=== PATIENT | male | born 1995 | race Caucasian/White ===

== ENCOUNTER 2025-03-26 09:18 | Emergency (ER) | payer OTHER ==
[~2025-03-26] VITALS: Ht 172.7 cm; Wt 71.9 kg
[2025-03-26] MEDS ORDERED: IBU600 MG PO (09:46)
[2025-03-26] MEDS ORDERED: AMOX TR-K CLV1 EAC1 PO (09:46)
[2025-03-26 09:55] VITALS: BP 121/70
== END 2025-03-26 09:56 | disposition home or self-care (01) ==
LOC: ED 09:18
DX: R22.0 Localized swelling, mass and lump, head (principal)
CPT/HCPCS: 99283